=== PATIENT | female | born 1970 ===

== ENCOUNTER 2016-06-15 17:45 | Day surgery (SDC) | payer OTHER ==
[2016-06-15] VITALS (8 sets, daily range): BP systolic 98–142; BP diastolic 62–89
[~2016-06-15] VITALS: Ht 157.5 cm; Wt 76.4 kg
[2016-06-15] MEDS ORDERED: ENOXAPARIN 40 MG/0.4 ML (LOVENOX) SYR SQ SCH ×2 (18:15→23:00)
[2016-06-15] MEDS ORDERED: NITROGLYCERIN 0.1 MG/PATCH (NITRO-DUR) TD ONE (18:15)
--- NOTE | 2016-06-15 18:16 | Cardiology History & Physical ---
HPI-Cardiology Cardiology Consultation Date of Consultation 06/15/16 Date of Admission Indication: chest pain HPI 46 years old lady with history of recurrent chest pain for the last 10 years, had a cardiac catheterization done in 2010 and reported that it was normal. Patient has been seen in [facility] and she was scheduled for stress test for next month. Patient was in her usual state of health until today when she started having more frequent chest pain described as dull achiness in the retrosternal area radiating up to the neck and jaw, when palpitation with emergency room and reported that the chest pain improved after receiving sublingual nitroglycerin, pain recurred after her period of time given another sublingual nitroglycerin and the pain improved again, she was started on nitroglycerin drip and transferred here. She has been having shortness of breath reported that she has underlying COPD. Denied any syncope or near syncopal episode. She has history of fibromyalgia and generalized body ache. PMH-Cardiology Other PMHx Other PMHx: past medical history as discussed below Social History Patient Social History Marrital Status: single Employed/Student: unemployed Alcohol Use: Denies Use Smoking: Never smoker Family Hx Other family history of hypertension and heart attack with her mother, grandparent has history of heart attack. ROS-Cardiology Review of Systems General: No Chills, No Night Sweats, Fatigue, Malaise, No Appetite HEENT: No Head Aches, No Visual Changes, No Eye Pain, No Ear Pain, No Dysphasia , No Sinus Congestion, No Post Nasal Drip, No Sore Throat Pulmonary: Dyspnea, No Cough, No Pleuritic Chest Pain Cardiovascular: Chest Pain, No: Edema, Lt Headedness, Orthopnea, Palpitations, Paroxysmal Noc. Dyspnea Gastrointestinal: No: Abdominal Pain, Constipation, Diarrhea, Hematochezia, Melena, Nausea, Vomiting Genitourinary: No Dysuria, No Frequency, No Incontinence, No Hematuria, No Retention Musculoskeletal: No: arm pain, back pain, foot pain, hand pain, leg pain, neck pain, shoulder pain Neurological: No: Change in speech, Confusion, Incoordination, Numbness, Seizures, Weakness Home Medications & Allergies Allergies: Coded Allergies: Penicillins (Verified Allergy, Unknown, 06/15/16) diphenhydramine (Verified Allergy, Unknown, 06/15/16) duloxetine (Verified Allergy, Unknown, 06/15/16) methylprednisolone (Verified Allergy, Unknown, 06/15/16) prednisone (Verified Allergy, Unknown, 06/15/16) quetiapine (Verified Allergy, Unknown, 06/15/16) Uncoded Allergies: tape (Adverse Reaction, Unknown, 06/15/16) Home Medication List Reviewed: Yes Exam-Cardiology Vital Signs Vital Signs Date Time Temp Pulse Resp B/P (MAP) Pulse Ox O2 Delivery O2 Flow Rate FiO2 06/15/16 17:45 97.3 71 14 142/87 100 Room Air Exam General Appearance: Alert, Oriented X3, Cooperative, No Acute Distress HEENT: Atraumatic, PERRLA Respiratory: Clear to Auscultation, Normal Air Movement Cardiovascular: Regular Rate, Normal S1, Normal S2, No Murmurs Abdominal: Normal Bowel Sounds, Soft, No Tenderness, No Hepatosplenomegaly, No Masses Extremities: No Clubbing, No Cyanosis, No Edema, Normal Pulses, No Tenderness/ Swelling Skin: No Rashes, No Breakdown, No Significant Lesion Neuro: Normal Gait, Normal Speech, Strength at 5/5 X4 Ext, Normal Tone, Sensation Intact Psych/Mental Status: Mental Status NL, Mood NL Results Labs Labs Laboratory Tests 06/15/16 18:26: labs from general with Hospital were normal except for elevated glucose level, elevated liver enzymes, normal CBC A/P-Cardiology Admission Diagnosis Anterior chest wall pain COPD Diabetes mellitus Hyperlipidemia Elevated liver enzymes Assessment/Plan Anterior chest wall pain, resembling angina responsive to nitroglycerin, no acute EKG changes, cardiac enzymes so far are negative, I'll continue monitoring her chest pain, stop the nitroglycerin drip and use Nitropatch, consideration for cardiac catheterization if patient continued to have recurrent chest pain. Elevated liver enzymes of unknown etiology, patient has been on lovastatin, had multiple tattoos, I will hold lovastatin and monitor, evaluate hepatitis profile Diabetes mellitus, place the patient on Accu-Chek with sliding scale COPD/bronchial asthma, has been managed by primary care physician Fibromyalgia generalized body ache Reporting cardiac catheterization done in 2010 and reporting that it was normal History of depression, bipolar disorder, posttraumatic stress disorder Migraine Hyperlipidemia I will evaluate lipid profile History of gastroparesis History of bowel resection, hernia, tonsil, tubal ligation, hysterectomy, cholecystectomy, shoulder surgery. POONAM GUARDADO MD Jun 15, 2016 18:16
[2016-06-15] MEDS ORDERED: EXEN2VIA SQ (18:25)
[2016-06-15] MEDS ORDERED: CLON1TAB PO (18:25)
[2016-06-15] MEDS ORDERED: LOVA40TA2 PO (18:25)
[2016-06-15] MEDS ORDERED: PRAZ1CAP PO (18:25)
[2016-06-15] MEDS ORDERED: ARIP5TAB12 PO (18:25)
[2016-06-15] MEDS ORDERED: TRAZ150T72 PO (18:25)
[2016-06-15] MEDS ORDERED: RT-ALBUINH IH (18:25)
[2016-06-15] MEDS ORDERED: PARO40TA PO (18:25)
[2016-06-15] MEDS ORDERED: LATA1OIL OU (18:25)
[2016-06-15] MEDS ORDERED: SMTR50T PO (18:25)
[2016-06-15] MEDS ORDERED: NITR0.4T39 SL (18:25)
[2016-06-15] MEDS ORDERED: FLUT1AER IH (18:25)
[2016-06-15] MEDS ORDERED: SAXA5TAB PO (18:25)
[2016-06-15] MEDS ORDERED: PREG150C PO (18:25)
[2016-06-15] MEDS ORDERED: PANT20TA2 PO (18:25)
[2016-06-15] MEDS ORDERED: SUMAtriptan 50 MG (IMITREX) TAB PO PRN (18:30)
[2016-06-15 18:34] LABS: RED BLOOD COUNT 4.12 10^6/uL (4.35-5.85); WHITE BLOOD COUNT 7.9 10^3/uL (4.3-11.0)
[2016-06-15 18:47] LABS: PROTHROMBIN TIME PATIENT 13.2 SEC (12.2-14.7)
[2016-06-15 18:57] LABS: ALANINE AMINOTRANSFERASE 72 U/L (0-55); ALBUMIN 4.5 G/DL (3.2-4.5); ANION GAP 12 MMOL/L (5-14); ASPARTATE AMINO TRANSFERASE 64 U/L (5-34); BILIRUBIN,TOTAL 0.5 MG/DL (0.1-1.0); BLOOD UREA NITROGEN 7 MG/DL (7-18); BUN/CREATININE RATIO 9; CALCIUM 9.8 MG/DL (8.5-10.1); CARBON DIOXIDE 24 MMOL/L (21-32); CHLORIDE 106 MMOL/L (98-107); CREATININE SERUM 0.78 MG/DL (0.60-1.30); GFR ESTIMATED > 60; GLUCOSE 87 MG/DL (70-105); POTASSIUM 4.2 MMOL/L (3.6-5.0); SODIUM 142 MMOL/L (135-145); TOTAL PROTEIN 7.2 G/DL (6.4-8.2)
[2016-06-15 19:02] LABS: TROPONIN I < 0.30 NG/ML (<0.30)
[2016-06-15] MEDS: FAMOTIDINE 20 MG (PEPCID) TABLET PO SCH (20:42)
[2016-06-15] MEDS: inSUlin ASPART (NovoLOG) 1 UNIT/0.01 ML (CHARGE PER UNIT) SC SCH (20:42)
[2016-06-15] MEDS: clonazePAM 1 MG (KlonoPIN) TAB PO SCH (20:42)
[2016-06-15] MEDS ORDERED: ARIPIPRAZOLE 10 MG (ABILIFY) TAB ONE (20:59)
[2016-06-15] MEDS ORDERED: PRAZOSIN HCL 1 MG PO SCH (21:00)
[2016-06-15] MEDS ORDERED: RT-ALBUTEROL HFA (VENTOLIN) PER PUFF IH SCH (21:00)
[2016-06-15] MEDS ORDERED: traZODone 150 MG (DESYREL) TABLET PO SCH (21:00)
[2016-06-15] MEDS ORDERED: NON-FORMULARY MEDICATION 1 EA EA (Pregabalin (Lyrica) 150 MG) PO SCH (21:39)
[2016-06-15] MEDS ORDERED: PREGABALIN 75 MG (LYRICA) CAP ONE (21:40)
[2016-06-16] VITALS (16 sets, daily range): BP systolic 86–130; BP diastolic 55–85
[2016-06-16] MEDS ORDERED: morphine INJ 4 MG/ML 1 ML (VIAL/SYRINGE) ONE (01:14)
[2016-06-16] MEDS ORDERED: morphine INJ 4 MG/ML 1 ML (VIAL/SYRINGE) IVP PRN (02:30)
[2016-06-16 04:30] LABS: MEAN PLATELET VOLUME 10.8 FL (7.4-10.4); RED BLOOD COUNT 3.7 10^6/uL (4.35-5.85); RED CELL DISTRIBUTION WIDTH 14.1 % (10.0-14.5); WHITE BLOOD COUNT 6.6 10^3/uL (4.3-11.0)
[2016-06-16 05:05] LABS: ALANINE AMINOTRANSFERASE 56 U/L (0-55); ANION GAP 9 MMOL/L (5-14); ASPARTATE AMINO TRANSFERASE 49 U/L (5-34); BILIRUBIN,TOTAL 0.4 MG/DL (0.1-1.0); BLOOD UREA NITROGEN 8 MG/DL (7-18); BUN/CREATININE RATIO 9; CALCIUM 8.9 MG/DL (8.5-10.1); CARBON DIOXIDE 26 MMOL/L (21-32); CHLORIDE 108 MMOL/L (98-107); CHOLESTEROL 181 MG/DL (< 200); DIRECT LDL 101 MG/DL (1-129); GFR ESTIMATED > 60; GLUCOSE 97 MG/DL (70-105); MAGNESIUM 2.1 MG/DL (1.8-2.4); POTASSIUM 3.9 MMOL/L (3.6-5.0); SODIUM 143 MMOL/L (135-145); TOTAL PROTEIN 6.5 G/DL (6.4-8.2); TRIGLYCERIDES 245 MG/DL (<150); VLDL CHOLESTEROL 49 MG/DL (5-40)
[2016-06-16 05:13] LABS: TROPONIN I < 0.30 NG/ML (<0.30)
[2016-06-16] MEDS: inSUlin ASPART (NovoLOG) 1 UNIT/0.01 ML (CHARGE PER UNIT) SC SCH ×2 (05:21→12:50)
[2016-06-16] MEDS ORDERED: RT-ADVAIR HFA 115/21 MCG PER PUFF IH SCH (08:00)
--- NOTE | 2016-06-16 08:18 | Diagnostic Imaging Report ---
INDICATION: Chest pain and heart disease. No prior examinations are available for comparison. FINDINGS: The heart size, mediastinal configuration, and pulmonary vascularity are within normal limits. There is no pleural effusion, pneumothorax, or pneumonia. The osseous structures are unremarkable. IMPRESSION: No acute cardiopulmonary abnormality. Dictated by: Dictated on workstation # [id number]
--- NOTE | 2016-06-16 08:32 | Cardiology Progress Note ---
Subjective Subjective/Events-last exam patient is laying down in bed, still having active chest pain at this point, expressed that the pain has been waxing and waning the whole night. Denied any palpitation or syncope. Review of Systems General: No Chills, No Night Sweats, No Fatigue, No Malaise, No Appetite, No Other HEENT: No Head Aches, No Visual Changes, No Eye Pain, No Ear Pain, No Dysphasia , No Sinus Congestion, No Post Nasal Drip, No Sore Throat, No Other Pulmonary: No Dyspnea, No Cough, No Pleuritic Chest Pain, No Other Cardiovascular: Chest Pain, No: Edema, Lt Headedness, Orthopnea, Other, Palpitations, Paroxysmal Noc. Dyspnea Objective-Cardiology Exam Last Set of Vital Signs Vital Signs 06/16/16 06/16/16 06:00 08:09 Pulse 72 Resp 11 B/P (MAP) 118/79 Pulse Ox 97 O2 Delivery Nasal Cannula O2 Flow Rate 2.00 Capillary Refill : I&O Bad tableGeneral: Alert, Oriented X3, Cooperative, No Acute Distress HEENT: Atraumatic, PERRLA Lungs: Clear to Auscultation, Normal Air Movement Heart: Regular Rate, Normal S1, Normal S2, No Murmurs Abdomen: Normal Bowel Sounds, Soft, No Tenderness, No Hepatosplenomegaly, No Masses Extremities: No Clubbing, No Cyanosis, No Edema, Normal Pulses, No Tenderness/ Swelling Skin: No Rashes, No Breakdown, No Significant Lesion Neuro: Normal Gait, Normal Speech, Strength at 5/5 X4 Ext, Normal Tone, Sensation Intact Psych/Mental Status: Mental Status NL, Mood NL Results Lab Laboratory Tests 06/15/16 18:26 06/16/16 04:19 A/P-Cardiology Admission Diagnosis Anterior chest wall pain COPD Diabetes mellitus Hyperlipidemia Elevated liver enzymes Assessment/Plan Anterior chest wall pain, resembling angina responsive to nitroglycerin, no acute EKG changes, cardiac enzymes so far are negative, I visited with the patient and I was considering doing a cardiac stress test due to the fact that she's been having active chest pain all night long although her cardiac enzymes are negative I decided to proceed with cardiac catheterization, I discussed posttest with the patient and explained the rationale after doing cardiac catheterization, planning to proceed with the procedure today. Elevated liver enzymes of unknown etiology, patient has been on lovastatin, had multiple tattoos, liver enzymes are slightly better, continue to hold lovastatin. Diabetes mellitus, restarted home medication. Continue to monitor COPD/bronchial asthma, has been managed by primary care physician Fibromyalgia generalized body ache Reporting cardiac catheterization done in 2010 and reporting that it was normal History of depression, bipolar disorder, posttraumatic stress disorder Migraine Hyperlipidemia I will evaluate lipid profile History of gastroparesis History of bowel resection, hernia, tonsil, tubal ligation, hysterectomy, cholecystectomy, shoulder surgery. Clinical Quality Measures DVT/VTE Risk/Contraindication: Risk Factor Score Per Nursin RFS Level Per Nursing on Admit: 3=High POONAM GUARDADO MD Jun 16, 2016 08:32
--- NOTE | 2016-06-16 08:41 | Cardiac Procedure Note-CS/ASA ---
Pre-Procedure Note Pre-Op Procedure Note H&P Reviewed The H&P was reviewed, patient examined and no changes noted. Date H&P Reviewed: Jun 16, 2016 Time H&P Reviewed: 08:40 Conscious Sedation Pre-Proced Time Reviewed: 08:40 ASA Class: 3 Airway Mallampati Classification: ([place] appropriate class) I. II. III, IV Lungs Heart ASA score ASA 1: a normal healthy patient ASA 2: a patient with a mild systemic disease (mid diabetes, controlled hypertension, obesity x ASA 3: a patient with a severe systemic disease that limits activity (angina , COPD, prior Myocardial infarction) ASA 4: a patient with an incapacitating disease that is a constant threat to life (CHF, renal failure) ASA 5: a moribund patient not expected to survive 24 hrs. (ruptured aneurysm) ASA 6: a declared brain patient whose organs are being harvested. For emergent operations, add the letter E after the classification Grade 3 Sedation Plan: Analgesia, Amnesia, Plan communicated to team members, Discussed options with patient/fam, Discussed risks with patient/fam Note The patient is an appropriate candidate to undergo the planned procedure, sedation, and anesthesia. The patient immediately re-assessed prior to indication. POONAM GUARDADO MD Jun 16, 2016 8:41 am
[2016-06-16] MEDS: FAMOTIDINE 20 MG (PEPCID) TABLET PO SCH (08:55)
[2016-06-16] MEDS: clonazePAM 1 MG (KlonoPIN) TAB PO SCH ×2 (08:55→13:39)
[2016-06-16] MEDS ORDERED: ASPIRIN E.C. 81 MG (ECOTRIN) TAB PO SCH (09:00)
[2016-06-16] MEDS ORDERED: NITROGLYCERIN 0.1 MG/PATCH (NITRO-DUR) TD SCH (09:00)
[2016-06-16] MEDS ORDERED: PARoxetine 20 MG (PAXIL) TAB PO SCH (09:00)
[2016-06-16] MEDS ORDERED: sitaGLIPtin 50 MG (JANUVIA) TAB PO SCH (09:00)
[2016-06-16] MEDS ORDERED: SAXAGLIPTIN HCL 5 MG PO SCH (09:00)
[2016-06-16] MEDS ORDERED: PREGABALIN 75 MG (LYRICA) CAP PO SCH (09:00)
[2016-06-16] MEDS ORDERED: NON-FORMULARY MEDICATION 1 EA EA (Fluticasone/Vilanterol (Breo Ellipta 100-25 Mcg INH) 1 E IH SCH (09:00)
[2016-06-16] MEDS ORDERED: ARIPIPRAZOLE 10 MG (ABILIFY) TAB PO SCH ×2 (09:00→21:00)
[2016-06-16] MEDS ORDERED: NON-FORMULARY MEDICATION 1 EA EA (Aripiprazole (Abilify) 5 MG) PO SCH (09:00)
[2016-06-16] MEDS ORDERED: PAROXETINE HCL 40 MG PO SCH (09:00)
[2016-06-16] MEDS ORDERED: NON-FORMULARY MEDICATION 1 EA EA (Pregabalin (Lyrica) 150 MG) PO SCH (09:00)
[2016-06-16] MEDS ORDERED: LIDOCAINE 1% INJ 20 ML (XYLOCAINE) VIAL ONE (09:24)
[2016-06-16] MEDS ORDERED: NS IV 1000 ML 1,000 ML ONE (09:25)
[2016-06-16] MEDS ORDERED: MIDAZOLAM 5 MG/5 ML (VERSED) VIAL ONE (09:25)
[2016-06-16] MEDS ORDERED: HEParin (CATH LAB) 2,000 ML IV ONE (09:25)
[2016-06-16] MEDS ORDERED: fentaNYL INJECTION 100 MCG/2 ML AMP ONE (09:25)
[2016-06-16] MEDS ORDERED: NS IV 1000 ML 1,000 ML IV SCH ×2 (10:00→10:14)
[2016-06-16] MEDS ORDERED: PATIENT MAY USE OWN MEDS, ALL PO SCH (10:15)
[2016-06-16] MEDS ORDERED: RT-ALBUTEROL SULF 2.5 MG/3 ML PRE-MIX VIAL IH SCH (11:00)
--- NOTE | 2016-06-16 13:48 | Diagnostic Imaging Report ---
INDICATION: Chest pain. COMPARISON: None. PROCEDURE: Grayscale and duplex Doppler evaluation of deep venous system of both lower extremities is performed utilizing compression and augmentation. FINDINGS: The common femoral veins, superficial femoral veins and popliteal veins appear patent and compressible bilaterally. No visible thrombus is seen. Waveforms appear unremarkable with augmentation. IMPRESSION: No evidence of deep venous thrombosis within either lower extremity. Dictated by: Dictated on workstation # [id number]
[2016-06-16] MEDS ORDERED: ASPI-983 PO (14:35)
--- NOTE | 2016-06-16 14:37 | Discharge Inst-Post CATH ---
Discharge Inst-CATH Post Cardiac Cath D/C Inst Follow Up/Plan Follow up with [facility] Appointment with Dr Villa's office in 2-4 weeks CARDIAC CATH DISCHARGE INSTRUCTIONS *Hold Metformin for 48 hours post heart cath. ACTIVITY * Go Home directly and rest. * Limit activity of the leg (or wrist if it was used) for 7 days including aerobics, swimming, jogging, bicycling, etc. * Restrict stair-climbing for 7 days if possible, if not, climb up with your non -cath leg, then bring together on the same step. * Avoid lifting, pushing, pulling or excessive movement of the affected extremity for 7 days. * Customary sexual activity may be resumed after 2 days-use caution not to use a position that strains or causes pain to the affected extremity. * No driving for 24 hours. * NO SMOKING. * Avoid straining for bowel movements for 7 days. * Gentle walking on level ground is allowed. * Returning to work will depend on the type of procedure and the results. Your doctor will discuss this with you. CALL YOUR DOCTOR FOR ANY OF THE FOLLOWING: *If bleeding from the puncture site occurs- Apply gentle pressure to site with clean cloth and call your doctor or EMS. * If a knot or lump forms under the skin, increases in size, or causes pain. * If bruising appears to be worsening or moving further down your leg instead of disappearing. * Temperature above 101 F. CARE OF YOUR GROIN INCISION; * Bruising or purple discoloration of the skin near the puncture site is common. * You may shower only, no bathtub bathing for 5 days. Be careful to avoid slipping as your leg may feel stiff. * If a closure device was used on your femoral artery, please see the attached guide regarding care of the device and your leg. * REMOVE the dressing from your groin the next day after your procedure in the shower. CARE OF YOUR WRIST INCISION; * Bruising or purple discoloration of the skin near the puncture site is common. * You may shower. * DO NOT submerge wrist. * Remove dressing in 24 hours. POONAM VILLA MD Jun 16, 2016 14:37
--- NOTE | 2016-06-16 14:38 | Clinic Account Progress/Dx ---
Clinic Account Progress/Dx DIAGNOSIS: Diagnosis Anterior chest wall pain COPD Diabetes mellitus Hyperlipidemia Elevated liver enzymes POONAM GUARDADO MD Jun 16, 2016 14:38
[2016-06-16] MEDS ORDERED: ENOXAPARIN 40 MG/0.4 ML (LOVENOX) SYR SQ SCH (16:00)
[2016-06-16] MEDS ORDERED: PRAZOSIN 1 MG CAPSULE (MINIPRESS) NON-FORMULARY PO SCH ×2 (21:00)
--- NOTE | 2016-06-16 22:03 | CARDIAC CATHETERIZATION ---
DATE OF SERVICE: 06/16/2016 PROCEDURE: CARDIAC CATHETERIZATION. REFERRING PHYSICIAN: [facility]. BRIEF HISTORY: The patient is a 46-year-old lady with recurrent chest pain, admitted through [facility] and started on nitroglycerin drip. She was transferred to our facility. She continued to have chest pain waxing and waning. We discussed the possibility of cardiac catheterization, but the patient was having active chest pain while having the nitroglycerin. I decided to proceed with cardiac catheterization. PROCEDURE NOTE: After I explained the procedure to the patient, all pros and cons were explained, all questions were answered. The patient signed the consent, then she was placed on the cardiac catheterization laboratory. The right groin was prepped in a sterile fashion, local anesthesia applied to the right groin. A 6-Malay sheath was placed in the right femoral artery. A combination of right and left Radha catheter were used to access the right and left coronary system, multiple views were obtained. Pigtail catheter advanced to the left ventricular cavity. Left ventriculogram was done. The image was not saved but the patient had normal left ventricular function. Pressure was measured. Pullback LV to aorta was done. Aortic arch angiogram was done. At the end of the procedure sheath was removed. Mynx device deployed. Hemostasis achieved. FINDINGS: HEMODYNAMICS: LV pressure 138/30. End-diastolic pressure of 30. Aortic pressure 135/71. Mean of 101. ANATOMY: 1. Left main coronary artery is bifurcating into LAD and circumflex with no obstructive disease. 2. Left anterior descending artery is a small artery in size with no significant obstructive disease. 3. Left circumflex artery is a small artery with no obstructive disease. 4. Right coronary artery is a dominant artery with no significant obstructive disease. 5. Left ventriculogram was done in the right anterior oblique position. Left ventricle is normal in size with normal systolic function. Estimated ejection fraction is 60%. The image of the left ventriculogram was not saved on the study. 6. Aortic arch angiogram is normal in size. No dissection or aneurysm. The great vessels of the neck appeared normal including the innominate artery, left carotid and left subclavian. IN CONCLUSION: 1. Normal coronary system. 2. Normal left ventricular size and systolic function. Estimated ejection fraction 60%. 3. Elevated left ventricular end-diastolic pressure. 4. Normal aortic arch and great neck vessels. DISCUSSION AND RECOMMENDATION: I will monitor the patient at this time. I will evaluate venous Doppler of the lower extremity for completeness of the workup. Further recommendation will follow based on her progress as an outpatient with her primary care physician. Job ID: [id number] DocumentID: [id number] Dictated Date: 06/16/2016 10:18:30 3D Specialist Date: 06/16/2016 10:49:53 Dictated By: POONAM GUARDADO MD
== END 2016-06-16 15:30 | disposition home or self-care (01) ==
LOC: CATH 17:45 → ICU 17:45 → INTOOBSV 17:50 → UNDOADMOB 17:50 → ICU 17:50 → UNDODISOB 06-16 15:30 → CATH 06-16 15:30
PROVIDERS: ATTEND Internal Medicine Cardiovascular Disease
DX: R07.89 Other chest pain (principal); E78.5 Hyperlipidemia, unspecified; E11.9 Type 2 diabetes mellitus without complications; R74.8 Abnormal levels of other serum enzymes; J44.9 Chronic obstructive pulmonary disease, unspecified; M79.7 Fibromyalgia; Z79.899 Other long term (current) drug therapy
CPT/HCPCS: 36221; 36415; 71010; 80053; 80061; 82962; 83735; 84484; 85027; 85610; 85730; 93005; 93458; 93970; 94640